=== PATIENT | male | born 1995 | race Two or more races ===

== ENCOUNTER 2023-01-12 18:07 | Emergency (ER) | payer OTHER ==
[~2023-01-12] VITALS: Ht 165.1 cm; Wt 70.5 kg
[2023-01-12 19:15] VITALS: BP 143/94; PULSE 82; RESP 14; TEMP 98.2
[2023-01-12] MEDS ORDERED: FLUORESCEIN SODIUM 1 MG STRIP OU ONE (19:45)
[2023-01-12] MEDS ORDERED: PROPARACAINE HCL 0.5% 15 ML OPHTHALMIC SOLUTION OS ONE (19:45)
[2023-01-12] MEDS ORDERED: SODIUM CHLORIDE 0.9% 1,000 ML IV ONE (20:00)
== END 2023-01-12 21:48 | disposition home or self-care (01) ==
LOC: EDSEX 18:09 → EMS 18:09
DX: H10.212 Acute toxic conjunctivitis, left eye (principal); Z88.2 Allergy status to sulfonamides
CPT/HCPCS: 99284; 96360; J7030